=== PATIENT | female | born 1955 | race Caucasian/White ===

== ENCOUNTER 2018-06-25 08:52 | Day surgery (SDC) | payer OTHER ==
[2018-06-24 10:16] VITALS: BMI 22.1
[2018-06-25] MEDS ORDERED: Bacitracin Zinc Ointment 30 gm TUBE ONE (09:28)
[2018-06-25] MEDS ORDERED: Bupivacaine PF 0.5% 30 ML VIAL ONE (09:28)
[2018-06-25] MEDS ORDERED: Midazolam HCl 2 mg/2 ml Vial ONE (09:33)
[2018-06-25] MEDS ORDERED: Fentanyl 100 MCG/2 ML VIAL ONE ×2 (09:33→11:23)
[2018-06-25 09:59] LABS: #Basophils 0.1 thou/uL (0.0-0.2); #Eosinphils 0.1 thou/uL (0.0-0.7); #Lymphocytes 2.2 thou/uL (1.20-3.40); #Monocytes 0.5 thou/uL (0.11-0.59); #Neutrophils 3.1 thou/uL (1.40-6.50); %Basophils 0.9 % (0.0-1.0); %Eosinophils 2.3 % (0.0-10.0); %Lymphocytes 36.1 % (21.0-51.0); %Monocytes 8.9 % (0.0-10.0); %Neutrophils 51.9 % (42.0-75.0); Hemoglobin 13.1 g/dL (12.0-16.0); Mean Corpuscular Hemoglobin 29.6 pg (27.0-31.0); Mean Corpuscular Volume 89.8 fL (78.0-98.0); Mean Platelet Volume 7.6 fL (7.4-10.4); Platelet Count 284 thou/uL (130-400); RBC Distribution Width 12.8 % (11.5-14.5); Red Blood Cell (RBC) Count 4.41 mill/uL (4.20-5.40)
[2018-06-25] MEDS ORDERED: Ketorolac Tromethamine 30 MG/ML VIAL ONE ×2 (11:20→12:18)
[2018-06-25] MEDS ORDERED: Dexamethasone 20 MG/5 ML VIAL ONE (12:18)
[2018-06-25] MEDS ORDERED: PROPOFOL 200 MG/20 ML VIAL ONE (12:18)
[2018-06-25] MEDS ORDERED: Lidocaine 1% PF 5 ML VIAL ONE (12:18)
[2018-06-25] MEDS ORDERED: Ondansetron PF 4 MG/2 ML Vial ONE (12:18)
[2018-06-25] MEDS ORDERED: PHENYLEPHRINE-NS 100 MCG/ML 10 ML SYRINGE ONE (12:18)
--- NOTE | 2018-06-25 12:35 | RAD ---
RIGHT FINGER TWO VIEWS: Indication: ORIF right fingers. Comparison: 06-14-18 FINDINGS: There has been interval reduction and percutaneous pinning of the comminuted angulated small finger m etacarpal neck fracture. Fracture alignment appears near anatomic. The instrumentation projects in th e expected position. IMPRESSION: Closed reduction percutaneous pinning of the comminuted angulated fracture involving the right small finger metacarpal neck. POS: GONZALES
--- NOTE | 2018-06-25 22:32 | EKG ---
Test Reason : PREOP Blood Pressure : / mmHG Vent. Rate : 066 BPM Atrial Rate : 066 BPM P-R Int : 112 ms QRS Dur : 072 ms QT Int : 432 ms P-R-T Axes : 000 034 057 degrees QTc Int : 452 ms Normal sinus rhythm Normal ECG No previous ECGs available Confirmed by Mica RAMIREZ ([id number]) on 06/25/2018 10:32:25 PM Referred By: CHHAYA Confirmed By:Mica RAMIREZ
--- NOTE | 2018-06-26 07:38 | OP ---
DATE OF PROCEDURE: 06/25/2018 PREOPERATIVE DIAGNOSIS: Right small finger metacarpal fracture. POSTOPERATIVE DIAGNOSIS: Displaced right small finger metacarpal fracture with 30-degrees apex ulna and 30-degrees apex ulnar dorsal angulation in the frontal and sagittal plane respectively with minimal distal 3rd comminution. PROCEDURES PERFORMED: 1. Closed reduction and pinning, right small finger metacarpal fracture. 2. C-arm supervision for the procedure. 3. Application of short-arm splint. INDICATIONS: The patient with 10-day old metacarpal fracture in the clinic, displaced 30 to 40 degrees in 2 planes with some early malrotation, felt closed versus open reduction and fixation would be indicated. DESCRIPTION OF PROCEDURE: After successful general endotracheal anesthesia, the limb was prepped and draped. C-arm was brought to the field, identified the fracture, saw the angulation. I injected the metacarpal here. I feel that I am going to do a trial with K-wires to be done before open reduction. We were able to achieve the anatomic position and I held it reduced using the 90-degrees flexed PIP and MP joints. Then, first plastered the ulnar wire as distal as possible, but still extra-articular in the frontal and sagittal plane across the fracture down the shaft and it imbedded in the base of the small finger metacarpal. I placed additional wire in the same distal opening for the collateral ligament and down the shaft two-thirds away and then placed it through the shaft. The fracture made anatomic. No malrotation and no evidence of loss of flexion or extension at the MP joint. The wires were bent, cut, so they could be slide down the skin. Bulky dressing applied with bacitracin, Adaptic, 4x4, one roll of Kerlix, and then cast padding with an ulnar gutter splint. She left the operating room without evidence of anesthetic or operative complication. Job ID: [id number]
== END 2018-06-25 13:15 | disposition home or self-care (01) ==
LOC: SDC 08:52
PROVIDERS: ATTEND Orthopaedic Surgery Hand Surgery
PROC: 0PSP34Z Reposition Right Metacarpal with Internal Fixation Device, Percutaneous Approach (ICD-10-PCS; principal; 2018-06-25)
DX: S62.336A Displaced fracture of neck of fifth metacarpal bone, right hand, initial encounter for closed fracture (principal); M19.90 Unspecified osteoarthritis, unspecified site; F41.9 Anxiety disorder, unspecified; I10 Essential (primary) hypertension; F41.0 Panic disorder [episodic paroxysmal anxiety]; Z79.899 Other long term (current) drug therapy; X58.XXXA Exposure to other specified factors, initial encounter
CPT/HCPCS: 76000; 85025; 93005; 93010; J1885; J2250; J3010; J3490; S0020